=== PATIENT | female | born 1950 | race Caucasian/White ===

== ENCOUNTER 2019-11-26 12:05 | Outpatient (RCR) | payer MEDICARE, MEDICAID ==
[~2019-11-26] VITALS: Ht 152.4 cm; Wt 108.9 kg
[2019-11-26] MEDS ORDERED: Lidocaine 2% 20mg/ml/EPI 0.01mg/ml 20ml IV ONE (17:00)
== END 2019-12-14 | disposition home or self-care (01) ==
LOC: WCC 12:05
DX: L97.115 Non-pressure chronic ulcer of right thigh with muscle involvement without evidence of necrosis (principal); L89.313 Pressure ulcer of right buttock, stage 3; L98.493 Non-pressure chronic ulcer of skin of other sites with necrosis of muscle; L89.323 Pressure ulcer of left buttock, stage 3; L97.123 Non-pressure chronic ulcer of left thigh with necrosis of muscle; E66.01 Morbid (severe) obesity due to excess calories; Z92.21 Personal history of antineoplastic chemotherapy
CPT/HCPCS: 11043; 11104; 87070; 87205

== ENCOUNTER 2019-12-17 11:20 | Outpatient (RCR) | payer MEDICARE, MEDICAID ==
[~2019-12-17] VITALS: Ht 152.4 cm; Wt 108.9 kg
== END 2020-01-13 | disposition home or self-care (01) ==
LOC: WCC 11:20
DX: L97.115 Non-pressure chronic ulcer of right thigh with muscle involvement without evidence of necrosis (principal); L89.313 Pressure ulcer of right buttock, stage 3; L98.493 Non-pressure chronic ulcer of skin of other sites with necrosis of muscle; L89.323 Pressure ulcer of left buttock, stage 3; L97.123 Non-pressure chronic ulcer of left thigh with necrosis of muscle; E66.01 Morbid (severe) obesity due to excess calories; Z92.21 Personal history of antineoplastic chemotherapy; I10 Essential (primary) hypertension; E11.9 Type 2 diabetes mellitus without complications; I25.2 Old myocardial infarction; Z86.73 Personal history of transient ischemic attack (TIA), and cerebral infarction without residual deficits; Z79.02 Long term (current) use of antithrombotics/antiplatelets; Z79.899 Other long term (current) drug therapy
CPT/HCPCS: 11043; G0463

== ENCOUNTER 2020-02-24 17:01 | Outpatient (RCR) | payer MEDICARE, MEDICAID | END 2020-03-15 | disposition home or self-care (01) | LOC: WCC 17:01 | DX: L97.115 Non-pressure chronic ulcer of right thigh with muscle involvement without evidence of necrosis (principal); L98.493 Non-pressure chronic ulcer of skin of other sites with necrosis of muscle; L97.123 Non-pressure chronic ulcer of left thigh with necrosis of muscle; E66.01 Morbid (severe) obesity due to excess calories; Z92.21 Personal history of antineoplastic chemotherapy; E11.9 Type 2 diabetes mellitus without complications; I10 Essential (primary) hypertension; I25.2 Old myocardial infarction; Z86.73 Personal history of transient ischemic attack (TIA), and cerebral infarction without residual deficits; Z79.02 Long term (current) use of antithrombotics/antiplatelets; Z79.899 Other long term (current) drug therapy; Z85.3 Personal history of malignant neoplasm of breast; Z90.13 Acquired absence of bilateral breasts and nipples | CPT/HCPCS: G0463 ==

== ENCOUNTER 2020-06-02 12:31 | Outpatient (RCR) | payer MEDICARE, MEDICAID ==
[~2020-06-02] VITALS: Ht 152.4 cm; Wt 108.9 kg
== END 2020-06-14 | disposition home or self-care (01) ==
LOC: WCC 12:31
DX: L97.113 Non-pressure chronic ulcer of right thigh with necrosis of muscle (principal); E11.9 Type 2 diabetes mellitus without complications; I25.2 Old myocardial infarction; Z85.3 Personal history of malignant neoplasm of breast; I10 Essential (primary) hypertension; Z86.73 Personal history of transient ischemic attack (TIA), and cerebral infarction without residual deficits; Z79.899 Other long term (current) drug therapy; Z79.02 Long term (current) use of antithrombotics/antiplatelets
CPT/HCPCS: 11043

== ENCOUNTER 2020-06-16 10:14 | Outpatient (RCR) | payer MEDICARE, MEDICAID | END 2020-07-15 | disposition home or self-care (01) | LOC: WCC 10:14 | DX: L97.113 Non-pressure chronic ulcer of right thigh with necrosis of muscle (principal) | CPT/HCPCS: 11043 ==

== ENCOUNTER 2020-07-21 12:03 | Outpatient (RCR) | payer MEDICARE, MEDICAID | END 2020-08-15 | disposition home or self-care (01) | LOC: WCC 12:03 | DX: L97.113 Non-pressure chronic ulcer of right thigh with necrosis of muscle (principal); Z90.13 Acquired absence of bilateral breasts and nipples; Z85.3 Personal history of malignant neoplasm of breast; I25.2 Old myocardial infarction; Z86.73 Personal history of transient ischemic attack (TIA), and cerebral infarction without residual deficits; I10 Essential (primary) hypertension; Z79.02 Long term (current) use of antithrombotics/antiplatelets | CPT/HCPCS: 11043 ==

== ENCOUNTER 2020-08-25 10:12 | Outpatient (RCR) | payer MEDICARE, MEDICAID ==
[~2020-08-25] VITALS: Ht 30.5 cm; Wt 0.5 kg
== END 2020-09-12 | disposition home or self-care (01) ==
LOC: WCC 10:12
DX: L97.113 Non-pressure chronic ulcer of right thigh with necrosis of muscle (principal); Z90.13 Acquired absence of bilateral breasts and nipples; Z85.3 Personal history of malignant neoplasm of breast; I25.2 Old myocardial infarction; Z86.73 Personal history of transient ischemic attack (TIA), and cerebral infarction without residual deficits; I10 Essential (primary) hypertension; Z79.02 Long term (current) use of antithrombotics/antiplatelets
CPT/HCPCS: 11043